=== PATIENT | male | born 1965 | race Caucasian/White ===

== ENCOUNTER 2020-12-21 18:59 | Observation (INO) | payer MEDICARE ==
[2020-12-21] MEDS ORDERED: cloNIDine 0.1 MG Tab PO ONE (19:31)
[2020-12-21] MEDS ORDERED: LORazepam 1 MG Tab PO ONE (20:03)
[2020-12-21 20:22] LABS: ANION GAP 15.4 mmol/L (5-15)
[2020-12-21] MEDS ORDERED: LORazepam 2 MG/ML SDV IVPUSH ONE (20:49)
[2020-12-21] MEDS ORDERED: Aspirin 81 MG Tab.Chew PO ONE (20:55)
[2020-12-21] MEDS ORDERED: amLODIPine 5 MG Tab PO ONE (20:56)
[2020-12-21] MEDS ORDERED: Labetalol 20 MG/4 ML Syringe IVPUSH PRN (22:50)
[2020-12-21] MEDS: ClonazePAM 0.5 MG Tab PO SCH (23:09)
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
[2020-12-22] MEDS ORDERED: Sodium Chloride 0.65% Nasal Spray 45 ML Bottle NAS PRN (03:17)
[2020-12-22] MEDS: ClonazePAM 0.5 MG Tab PO SCH (07:55)
[2020-12-22] MEDS ORDERED: amLODIPine 5 MG Tab PO SCH (08:00)
[2020-12-22 08:50] LABS: CHLORIDE,CL 100 mmol/L (98-107); SODIUM,NA 136 mmol/L (136-145)
[2020-12-22 08:51] LABS: ANION GAP 15.9 mmol/L (5-15)
[2020-12-22] MEDS ORDERED: atorvaSTATin 10 MG Tab PO SCH (09:15)
[2020-12-22] MEDS ORDERED: Fluticasone Propionate Nasal Spray 9.9 ML BOTTLE NASBOTH SCH (09:15)
[2020-12-22] MEDS ORDERED: Tamsulosin 0.4 MG Cap.ER PO SCH (09:15)
[2020-12-22] MEDS ORDERED: Non-Formulary Medication 1 Each (Liraglutide [Victoza 2-Pak] 1.8 MG) SUBCUT SCH (09:15)
[2020-12-22] MEDS ORDERED: METFORMIN PO SCH (09:15)
[2020-12-22] MEDS ORDERED: DULoxetine 20 MG Cap PO SCH (09:15)
[2020-12-22] MEDS ORDERED: Aspirin 81 MG Tab.EC PO SCH (09:15)
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
--- NOTE | 2020-12-22 10:37 | CR ---
[id number] RAD/RAD Fingers Right Exam: RAD Fingers Right Indication:ASSAULT INJURY, PAIN METACARPAL. Comparison: No prior imaging for comparison. Discussion/Impression: Bones in normal alignment. No fracture, AVN, or erosive changes. Joint spaces are well-preserved. Bone mineralization is normal. Rg Lomas MD 12/22/20 1035 Thank you for allowing us to participate in the care of your patient.
--- NOTE | 2020-12-22 10:37 | CR ---
[id number] RAD/RAD Chest PA And Lateral EXAM: RAD Chest PA And Lateral INDICATION: CHEST PAIN, SHORTNESS OF BREATH. COMPARISON: None. DISCUSSION: Cardiomediastinal silhouette is normal in size and contour. Lungs are clear. No pleural effusion or pneumothorax. IMPRESSION: Negative examination of the chest. Rg Lomas MD 12/22/20 1035 Thank you for allowing us to participate in the care of your patient.
[2020-12-22] MEDS ORDERED: amLODIPine 5 MG Tab PO STA (10:50)
== END 2020-12-22 12:10 | disposition home or self-care (01) ==
LOC: VM.ED 18:59 → INTOOBSV 21:47 → VM.MS 21:47
PROVIDERS: ADMIT Nurse Practitioner Family; ATTEND Nurse Practitioner Family
DX: I12.9 Hypertensive chronic kidney disease with stage 1 through stage 4 chronic kidney disease, or unspecified chronic kidney disease (principal); E11.22 Type 2 diabetes mellitus with diabetic chronic kidney disease; E11.69 Type 2 diabetes mellitus with other specified complication; I16.0 Hypertensive urgency; G47.33 Obstructive sleep apnea (adult) (pediatric); E78.00 Pure hypercholesterolemia, unspecified; E66.9 Obesity, unspecified; E11.42 Type 2 diabetes mellitus with diabetic polyneuropathy; N18.31 Chronic kidney disease, stage 3a; J32.9 Chronic sinusitis, unspecified; F40.01 Agoraphobia with panic disorder; Z20.822 Contact with and (suspected) exposure to COVID-19; Z79.82 Long term (current) use of aspirin; Z79.899 Other long term (current) drug therapy; Z79.84 Long term (current) use of oral hypoglycemic drugs; Z68.39 Body mass index [BMI] 39.0-39.9, adult
CPT/HCPCS: 36415; 71046; 73140-F5; 80048; 80053; 81001; 82550; 82962; 84484; 85025; 93005; 96374; 99217; 99220; 99285-25; A9270-GY; G0378; J2060; U0002